=== PATIENT | male | born 1995 | race Two or more races ===

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

== ENCOUNTER 2017-12-08 17:17 | Emergency (ER) | payer OTHER ==
[2017-12-08 18:34] VITALS: BP 112/70
[2017-12-08] MEDS ORDERED: Lidocaine 2% PF * 5 ML VIAL INJ ONE (19:00)
--- NOTE | 2017-12-08 19:06 | UC ---
Hand/Wrist HPI - HPI Summary HPI Summary: Patient is a 22-year-old male that sustained a right thumb laceration while at work today. He is right-handed. Td Up to date. A cow closed a gate on his thumb. He works for [employer] at a [employer]. - History Of Current Complaint Chief Complaint: UCLaceration Stated Complaint: WC - RIGHT HAND LACERATION Time Seen by Provider: 12/08/17 18:49 Hx Obtained From: Patient Onset/Duration: Sudden Onset Severity Initially: Moderate Severity Currently: Moderate Pain Intensity: 7 - declines analgesic Character Of Pain: Sharp, Aching Aggravating Factor(s): Movement, Lifting Alleviating Factor(s): Rest Associated Signs And Symptoms: Positive: Negative Related History: Occupational Injury, Dominant Hand Right Hands: 1 - laceration, distal N/V intact, FROM - Allergies/Home Medications Allergies/Adverse Reactions: Allergies Allergy/AdvReac Type Severity Reaction Status Date / Time No Known Allergies Allergy Verified 12/08/17 18:28 PMH/Surg Hx/FS Hx/Imm Hx Previously Healthy: Yes - Surgical History Surgical History: Yes Surgery Procedure, Year, and Place: Right shoulder reconstruction. T & A - A CHILD - Family History Known Family History: Positive: Hypertension - Social History Alcohol Use: None Substance Use Type: None Smoking Status (MU): Current Every Day Smoker Type: Smokeless Tobacco Amount Used/How Often: 1 can every 2 days - Immunization History Most Recent Tetanus Shot: 1 year derek Review of Systems Constitutional: Negative Skin: Negative Eyes: Negative ENT: Negative Respiratory: Negative Cardiovascular: Negative Gastrointestinal: Negative Genitourinary: Negative Motor: Negative Neurovascular: Negative Musculoskeletal: Negative Neurological: Negative Psychological: Negative Is Patient Immunocompromised?: No All Other Systems Reviewed And Are Negative: Yes Physical Exam Triage Information Reviewed: Yes Appearance: Well-Appearing, No Pain Distress, Well-Nourished Vital Signs: Initial Vital Signs Temp 98.2 F 12/08/17 18:29 Pulse 74 12/08/17 18:29 Resp 14 12/08/17 18:29 BP 112/70 12/08/17 18:29 Pulse Ox 99 12/08/17 18:29 Vital Signs Reviewed: Yes Eyes: Positive: Conjunctiva Clear ENT: Positive: Pharynx normal. Negative: Nasal drainage, TMs normal, Trismus, Muffled voice, Hoarse voice Neck: Positive: Supple, Nontender Respiratory: Positive: Lungs clear, Normal breath sounds, No respiratory distress Cardiovascular: Positive: RRR, No Murmur Musculoskeletal: Positive: ROM Intact, No Edema Neurological: Positive: Alert Skin Exam: Other - see image Procedures - Laceration/Wound Repair 1 Location: Other - right thumb Description: Linear Anesthesia: Digital, 1.0%, Lido Length, Depth and Shape: 2cm L, 3mm wide, 3 mm deep linear Betadine Prep?: Yes Irrigated w/ Saline (ccs): 950 Laceration/Wound Explored: clean - no gross contamination Closure: Single Layer Suture Type: Nylon - 5-0 Number of Sutures: 5 Layer Closure?: No Sterile Dressing Applied?: Yes Diagnostics - Radiology No standard instances Xray Interpretation: No Acute Changes - right thumb Radiology Interpretation Completed By: Radiologist Hand/Wrist Course/Dx - Differential Dx/Diagnosis Provider Diagnoses: right thumb laceration Discharge - Sign-Out/Discharge Documenting (check all that apply): Patient Departure - Discharge Plan Condition: Stable Disposition: HOME Prescriptions: Cephalexin CAP* [Keflex CAP*] 500 mg PO QID #20 cap Patient Education Materials: Laceration (ED) Forms: *Work Release Referrals: Brezey Dinh MD [Primary Care Provider] - Additional Instructions: gently clean twice daily with soap and water apply a thin film of antibiotic ointment ( I like polysporin or aquaphor healing oint) keep covered at work RECHECK DEISY FOR CONCERNS OF INFECTION recheck on 12/10 sutures out in about 10 days elevate tylenol or advil if needed - Billing Disposition and Condition Condition: STABLE Disposition: Home
--- NOTE | 2017-12-08 19:23 | RAD ---
INDICATION: Right thumb injury COMPARISON: None TECHNIQUE: AP, lateral, and oblique views were obtained. FINDINGS: The bony structures, joint spaces, and soft tissues are normal for age. IMPRESSION: NEGATIVE EXAMINATION.
[2017-12-08] MEDS ORDERED: Cephalexin CAP* 500 MG PO ONE (19:33)
== END 2017-12-08 20:04 | disposition home or self-care (01) ==
LOC: UCCORT 17:17
DX: S61.011A Laceration without foreign body of right thumb without damage to nail, initial encounter (principal); W23.0XXA Caught, crushed, jammed, or pinched between moving objects, initial encounter; Y93.89 Activity, other specified; Y92.71 Barn as the place of occurrence of the external cause; Y99.0 Civilian activity done for income or pay; F17.220 Nicotine dependence, chewing tobacco, uncomplicated
CPT/HCPCS: 12001; 99212; 99213; A9270-GY; G0463